=== PATIENT | male | born 1980 | race Caucasian/White ===

== ENCOUNTER → 2022-05-07 | Outpatient (CLI) | payer OTHER ==
--- NOTE | 2022-05-07 15:17 | MR ---
EXAMINATION TYPE: MR brain/cspine wo/w DATE OF EXAM: 05/07/2022 COMPARISON: None HISTORY: Rt side weakness TECHNIQUE: Multiplanar, multisequence images of the brain and cervical spine were performed without and with IV contrast, utilizing 6.5 mL intravenous Gadavist . MRI brain: The ventricles, basal cisterns and sulci over the convexities are within normal limits and there is n o mass effect or shift of midline structures. There are mild to moderate multifocal areas of abnormal increased signal intensity in the periventric ular white matter and to a lesser extent the subcortical white matter both cerebral hemispheres. Conf iguration is highly suggestive of demyelinating disease. There is no pathological enhancement or diff usion restriction to just active or acute evaluating plaques. There are no abnormalities on diffusion-weighted imaging and there is no pathological enhancement thr oughout the brain parenchyma. The posterior fossa including the brainstem, fourth ventricle and cerebellar pontine angles appear no rmal. The intraorbital contents appear normal and symmetric. There is opacification of the left frontal sinus and the anterior left ethmoid air cells. The mastoid air cells and middle ear cavities are well aerated. MRI cervical spine: Craniovertebral junction relationships and prevertebral soft tissues are normal. The cervical vertebral segments are normal in height and alignment and there is no fracture subluxati on. There is mild degenerative disc disease C4-5, C5-6 and C6-7 levels where there is mild disc space bell rowing, loss signal intensity mild posterior disc bulge. There are no disc herniations. There is no cervical stenosis in the cervical cord is normal in size and signal intensity. No demyeli nating plaques pathological enhancement is seen throughout the cervical cord and upper visualized tho racic cord. The neuroforamina are patent. The paraspinal soft tissues are unremarkable. IMPRESSION: 1. Mild to moderate multifocal white matter abnormalities within the cerebral hemispheres suggestive of demyelinating disease. There there is no evidence of active demyelinating plaques. 2. Left frontal and ethmoid sinusitis. 3. Mild degenerative disc disease in lower cervical spine with no other significant abnormality seen. There are no cervical cord abnormalities.
== END | disposition home or self-care (01) ==
LOC: RADMRIMAIN 13:33
PROVIDERS: ATTEND Psychiatry & Neurology Neurology
DX: M50.321 Other cervical disc degeneration at C4-C5 level (principal); R90.82 White matter disease, unspecified; J32.2 Chronic ethmoidal sinusitis; J32.1 Chronic frontal sinusitis; M21.371 Foot drop, right foot
CPT/HCPCS: 70553; 72156; A9585

== ENCOUNTER → 2022-05-09 | Outpatient (CLI) | payer OTHER ==
--- NOTE | 2022-05-09 19:56 | MR ---
EXAMINATION TYPE: MR thoracic spine wo/w con DATE OF EXAM: 05/09/2022 7:40 PM COMPARISON: No priors. INDICATION: Patient age:Male; 42 years old; Reason for study: M21.379 FOOT DROP. Right sided weakness, foot drop, demyelinating disease TECHNIQUE: Multi planar, multi sequence imaging was performed utilizing: T1-weighted, short-tau inver lala recovery and T2-weighted of the thoracic spine. The patient was not given Gadolinium. IV Contrast: 6 cc Gadavist FINDINGS: Multilevel disc degeneration changes are seen with osteophyte formation scattered Schmorl's nodes and disc space narrowing. There is multilevel facet joint arthropathy present. No evidence for significa nt spinal canal stenosis. The neural foramen are patent. Mild bony edema of the anterior inferior asp ects of T9-T10 compatible with degeneration changes. Disc desiccation is seen at multiple levels. The re there appears to be a small T8-T9 central protrusion without significant spinal canal stenosis. Th e neural foramen are patent. Spinal cord signal is maintained. No abnormal postcontrast spinal cord c hanges. Postcontrast imaging demonstrates no abnormal postcontrast enhancement. IMPRESSION: 1. No evidence for significant spinal canal or neural foraminal stenosis. No evidence for abnormal p ostcontrast enhancement. 2. Small central T9-T10 disc herniation without significant spinal canal stenosis.
== END | disposition home or self-care (01) ==
LOC: RADMRIMAIN 17:55
PROVIDERS: ATTEND Psychiatry & Neurology Neurology
DX: M51.24 Other intervertebral disc displacement, thoracic region (principal); M21.379 Foot drop, unspecified foot
CPT/HCPCS: 72157; A9585

== ENCOUNTER 2023-02-25 22:03 | Emergency (ER) | payer OTHER ==
[2023-02-25 22:27] VITALS: RESP 18; TEMP 97.9
[2023-02-25] MEDS ORDERED: DIPH,PERTUS(ACELL)TETVAC-LF 0.5 ML VIAL IM ONE (22:45)
[2023-02-26 00:05] LABS: Basophils # (A) 0.1 k/uL (0-0.2); Basophils % (A) 0 %; Eosinophils # (A) 0.1 k/uL (0-0.7); Eosinophils % (A) 1 %; HCT 47.2 % (39.0-53.0); HGB 15.6 gm/dL (13.0-17.5); Lymphocytes % (A) 8 %; MCHC 33.1 g/dL (31.0-37.0); MCV 96.5 fL (80.0-100.0); Mean Platelet Volume 7.8; Monocytes # (A) 0.7 k/uL (0-1.0); Monocytes % (A) 6 %; Neutrophils # (A) 9.6 k/uL (1.3-7.7); Neutrophils % (A) 83 %; Platelet Count 279 k/uL (150-450); RDW 12.3 % (11.5-15.5); WBC 11.5 k/uL (3.8-10.6)
[2023-02-26] MEDS ORDERED: ACETAMINOPHEN TAB 500 MG TAB PO STA (00:06)
[2023-02-26 00:17] LABS: Partial Thromboplastin Time 23.3 sec (22.0-30.0); Prothrombin Time 10.7 sec (10.0-12.5)
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
[2023-02-26 00:21] LABS: ALT 31 U/L (4-49); AST 46 U/L (17-59); African American GFR (CKD) >90 (>60 ml/min/1.73 sqM); Albumin 4.4 g/dL (3.5-5.0); Alkaline Phosphatase 71 U/L (38-126); Anion Gap 8 mmol/L; Blood Urea Nitrogen 8 mg/dL (9-20); Calcium 8.9 mg/dL (8.4-10.2); Carbon Dioxide 21 mmol/L (22-30); Chloride 109 mmol/L (98-107); Glucose 89 mg/dL (74-99); Non-African American GFR(CKD) >90 (>60 ml/min/1.73 sqM); Potassium 3.9 mmol/L (3.5-5.1); Sodium 138 mmol/L (137-145); Total Bilirubin 0.6 mg/dL (0.2-1.3); Total Protein 7.3 g/dL (6.3-8.2)
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
[2023-02-26 01:59] VITALS: BP 151/72; PULSE 90
== END 2023-02-26 01:52 | disposition home or self-care (01) ==
LOC: EC 22:03
DX: M79.641 Pain in right hand (principal); F12.90 Cannabis use, unspecified, uncomplicated; F17.200 Nicotine dependence, unspecified, uncomplicated; Z23 Encounter for immunization; Z88.8 Allergy status to other drugs, medicaments and biological substances; V49.9XXA Car occupant (driver) (passenger) injured in unspecified traffic accident, initial encounter; Y92.410 Unspecified street and highway as the place of occurrence of the external cause
CPT/HCPCS: 36415; 70450; 71260; 72125; 74177; 80053; 85025; 85610; 85730; 90471; 90715; 99285